=== PATIENT | male | born 1965 | race Caucasian/White ===

== ENCOUNTER 2019-07-06 18:46 | Emergency (ER) | payer BC, OTHER ==
--- NOTE | 2019-07-06 19:50 | ED Physician Documentation ---
History of Present Illness - Stated complaint Stated Complaint: FEVER/CHAVIRA - Chief complaint Chief Complaint: General - History obtained from History obtained from: Patient (the patient is a very pleasant and healthy 53 Y/O m who p/w a 3 day history of flu like symptoms.The patient reports he was seen by his primary care provider 3 days ago and was told that he had some sort of flu is been taking Tylenol and ibuprofen, however tonight he presents with a headache that is not resolved over the last 2 days. He denies any severe neck pain or seizures or rashes he reports he did not receive a flu shot this year.He denies take any blood thinners or been on any on any anticoagulants.He denies any recent falls or trauma or injuries to the head.He describes his headache as frontal in nature and dull he denies any nasal discharge he does report a sore throat.The headache is not the worst headache of his life its not maximum in intensity and it is not sudden in onset.) Review of Systems Constitutional: reports: Fever, Chills, Myalgias Eyes: reports: Reviewed and negative Ears: reports: Reviewed and negative Nose: reports: Reviewed and negative Throat: reports: Sore throat Cardiac: reports: Reviewed and negative Respiratory: reports: Reviewed and negative GI: reports: Reviewed and negative : reports: Reviewed and negative Skin: reports: Reviewed and negative Musculoskeletal: reports: Reviewed and negative Neurologic: reports: Headache Psychiatric: reports: Reviewed and negative Endocrine: reports: Reviewed and negative Immunocompromised: reports: Reviewed and negative PD PAST MEDICAL HISTORY - Allergies Allergies/Adverse Reactions: Allergies Allergy/AdvReac Type Severity Reaction Status Date / Time No Known Drug Allergies Allergy Verified 07/06/19 18:57 PD ED PE NORMAL - Vitals Vital signs reviewed: Yes - General General: Alert and oriented X 3, No acute distress, Well developed/nourished - HEENT HEENT: Atraumatic, PERRL, EOMI, Ears normal, Moist mucous membranes, Dentition benign, Other (Oropharynx is erythematous, uvula is midline there is no exudates) - Neck Neck: Supple, no meningeal sign, No bony TTP - Cardiac Cardiac: RRR, No murmur, Strong equal pulses - Respiratory Respiratory: No respiratory distress, Clear bilaterally - Abdomen Abdomen: Normal bowel sounds, Soft, Non tender, Non distended, No organomegaly - Back Back: No CVA TTP, No spinal TTP - Derm Derm: Normal color, Warm and dry, No rash - Extremities Extremities: No deformity, No edema - Neuro Neuro: Alert and oriented X 3, project management intern 2-12 intact, No motor deficit, No sensory deficit, Normal speech - Psych Psych: Normal mood, Normal affect Results - Vitals Vitals: Vital Signs - 24 hr 07/06/19 07/06/19 18:52 21:19 Temperature 37 C Heart Rate 69 66 Respiratory 17 16 Rate Blood Pressure 127/76 133/86 H O2 Saturation 100 97 Oxygen O2 Source Room air - Labs Labs: Laboratory Tests 07/06/19 07/06/19 07/06/19 20:04 20:30 20:30 WBC 11.0 H RBC 4.99 Hgb 15.6 Hct 43.5 MCV 87.2 MCH 31.3 H MCHC 35.9 RDW 12.4 Plt Count 40 L MPV 10.8 Neut # (Auto) 8.5 H Lymph # (Auto) 1.2 L [place] # (Auto) 1.2 H Eos # (Auto) 0.1 Baso # (Auto) 0.1 Absolute Nucleated RBC 0.00 Nucleated RBC % 0.0 Sodium 125 L Potassium 3.6 Chloride 88 L Carbon Dioxide 26 Anion Gap 11.0 BUN 19 Creatinine 0.9 Estimated GFR (MDRD) 89 Glucose 120 H Calcium 8.8 Total Creatine Kinase 48 Influenza A (Rapid) Negative Influenza B (Rapid) Negative PD MEDICAL DECISION MAKING - ED course Complexity details: d/w patient (restults d/w patient and family. explained finding of hyponatremia, patient reports h/a resolved at this time. No previous labs to compare sodium levels. patient denies resp sx or taking any daily medications. patient has a scheduled appointment tomorrow with with pcp dr rankin. ), d/w family - Consults Consults: Discussed case with (hospitalist avionics technician. will dc home with follow up tomorrow w pcp.) Departure - Departure Clinical Impression: Hyponatremia Headache Qualifiers: Headache type: other headache syndrome Qualified Code(s): G44.89 - Other headache syndrome Condition: Good Instructions: ED Cephalgia Unspecified, Hyponatremia Dc Follow-Up: Amish Pretty MD [Primary Care Provider] - Tomorrow
[2019-07-06] MEDS ORDERED: PROCHLORPERAZINE 10 MG/2 ML VIAL IVP STA (19:59)
[2019-07-06] MEDS ORDERED: SODIUM CHLORIDE 0.9% 1,000 ML IV ONE (19:59)
[2019-07-06] MEDS ORDERED: diphenhydrAMINE INJ 50 MG/ML VIAL IVP STA (19:59)
--- NOTE | 2019-07-06 20:31 | CT Report ---
Reason: severe headache Procedure Date: 07/06/2019 Accession Number: [id number] / [id number] Procedure: CT - HEAD WO CPT Code: Final Report FULL RESULT: EXAM: CT HEAD WITHOUT CONTRAST. EXAM DATE: 07/06/2019 08:19 PM. CLINICAL HISTORY: Severe headache. COMPARISON: None. TECHNIQUE: Multiaxial CT images were obtained from the foramen magnum to the vertex. Reformats: Sagittal and coronal. IV contrast: None. In accordance with CT protocol optimization, one or more of the following dose reduction techniques were utilized for this exam: automated exposure control, adjustment of mA and/or KV based on patient size, or use of iterative reconstructive technique. FINDINGS: Parenchyma: No intraparenchymal hemorrhage. No evidence of mass, midline shift, or CT findings of infarction. [place]-white differentiation is distinct. Extraaxial Spaces: Normal for age. No subdural or epidural collections identified. Ventricles: Normal in size and position. Sinuses and Orbits: Imaged paranasal sinuses, orbits, and mastoids show no significant abnormality. Bones: No evidence of fracture or calvarial defect. Other: None. IMPRESSION: No acute intracranial abnormality. RADIA
[2019-07-06 20:40] LABS: BASOPHILS # (AUTO) 0.1 10^3/uL (0.0-0.1); BASOPHILS % (AUTO) 0.5 %; EOSINOPHILS # (AUTO) 0.1 10^3/uL (0.0-0.7); EOSINOPHILS % (AUTO) 0.5 %; HGB - HEMOGLOBIN 15.6 g/dL (14.0-18.0); LYMPHOCYTES # (AUTO) 1.2 10^3/uL (1.5-3.5); LYMPHOCYTES % (AUTO) 10.4 %; MEAN CORPUSCULAR HEMOGLOBIN 31.3 pg (27.0-31.0); MEAN CORPUSCULAR HGB CONC 35.9 g/dL (32.0-36.0); MEAN CORPUSCULAR VOLUME 87.2 fL (80.0-94.0); MEAN PLATELET VOLUME 10.8 fL (7.4-11.4); MONOCYTES # (AUTO) 1.2 10^3/uL (0.0-1.0); MONOCYTES % (AUTO) 10.8 %; NEUTROPHILS # (AUTO) 8.5 10^3/uL (1.5-6.6); NEUTROPHILS % (AUTO) 76.8 %; PLT - PLATELET COUNT 40 10^3/uL (130-450); RED BLOOD COUNT 4.99 10^6/uL (4.70-6.10); RED CELL DISTRIBUTION WIDTH 12.4 % (12.0-15.0)
[2019-07-06 20:49] LABS: CALCIUM 8.8 mg/dL (8.5-10.3); CREATININE 0.9 mg/dL (0.6-1.2)
[2019-07-06 22:04] VITALS: BP 130/85
== END 2019-07-06 22:50 | disposition home or self-care (01) ==
LOC: ED 18:46
DX: G44.89 Other headache syndrome (principal); E87.1 Hypo-osmolality and hyponatremia
CPT/HCPCS: 70450; 80048; 82550; 85025; 87275; 87276; 96361; 96374; 99284; J1200

== ENCOUNTER 2019-07-08 13:45 | Observation (INO) | payer OTHER ==
[2019-07-08] MEDS ORDERED: KETOROLAC 30 MG/ML VIAL IVP STA (14:31)
[2019-07-08] MEDS ORDERED: SODIUM CHLORIDE 0.9% 1,000 ML IV ONE (14:32)
--- NOTE | 2019-07-08 14:33 | ED Physician Documentation ---
History of Present Illness - Stated complaint Stated Complaint: FEVER/CHAVIRA - Chief complaint Chief Complaint: Fever - History obtained from History obtained from: Patient (This is a very healthy 53-year-old, no medical history. He is a runner. He has been sick for 8 days now with fever, worsening headaches. He has had mild nausea. No neck stiffness. No recent travel. No rashes. No abdominal pain or diarrhea. No sick contacts. No weight loss.) Review of Systems Ten Systems: 10 systems reviewed and negative Constitutional: reports: Fever, Chills, Myalgias, Fatigue Nose: denies: Rhinorrhea / runny nose, Congestion, Sinus pressure / pain Throat: denies: Sore throat Cardiac: denies: Chest pain / pressure, Palpitations Respiratory: denies: Dyspnea, Cough GI: denies: Abdominal Pain PD PAST MEDICAL HISTORY - Past Medical History Cardiovascular: None Respiratory: None Neuro: None Endocrine/Autoimmune: None GI: None : None HEENT: None Psych: None Musculoskeletal: None Derm: None - Past Surgical History Past Surgical History: Yes - Allergies Allergies/Adverse Reactions: Allergies Allergy/AdvReac Type Severity Reaction Status Date / Time No Known Drug Allergies Allergy Verified 07/08/19 14:02 - Social History Does the pt smoke?: No Smoking Status: Never smoker - Immunizations Immunizations are current?: No - POLST Patient has POLST: No PD ED PE NORMAL - Vitals Vital signs reviewed: Yes - General General: Alert and oriented X 3, No acute distress - HEENT HEENT: PERRL, EOMI, Ears normal, Moist mucous membranes, Pharynx benign - Neck Neck: Supple, no meningeal sign, No bony TTP - Cardiac Cardiac: RRR, No murmur - Respiratory Respiratory: No respiratory distress, Clear bilaterally - Abdomen Abdomen: Non tender - Back Back: No CVA TTP, No spinal TTP - Derm Derm: Normal color, Warm and dry - Extremities Extremities: No edema, No calf tenderness / cord - Neuro Neuro: Alert and oriented X 3, No motor deficit, No sensory deficit, Normal speech - Psych Psych: Normal mood, Normal affect Results - Vitals Vitals: Vital Signs - 24 hr 07/08/19 07/08/19 13:58 15:49 Temperature 37.6 C H Heart Rate 66 58 L Respiratory 16 18 Rate Blood Pressure 137/75 H 128/72 O2 Saturation 99 96 Oxygen O2 Source Room air - Labs Labs: Microbiology 07/08/19 14:45 CSF Culture - Preliminary Cerebral Spinal Fluid Laboratory Tests 07/08/19 07/08/19 07/08/19 14:45 15:27 15:27 WBC 9.0 RBC 4.34 L Hgb 13.6 L Hct 38.9 L MCV 89.6 MCH 31.3 H MCHC 35.0 RDW 13.0 Plt Count 148 MPV 9.3 Neut # (Auto) 6.3 Lymph # (Auto) 1.8 [place] # (Auto) 0.7 Eos # (Auto) 0.0 Baso # (Auto) 0.1 Absolute Nucleated RBC 0.00 Nucleated RBC % 0.0 ESR Sodium 135 Potassium 3.2 L Chloride 98 L Carbon Dioxide 26 Anion Gap 11.0 BUN 22 H Creatinine 0.9 Estimated GFR (MDRD) 89 Glucose 117 H Lactic Acid Calcium 8.3 L Total Bilirubin 2.1 H AST 81 H ALT 95 H Alkaline Phosphatase 92 C-Reactive Protein 12.5 H Total Protein 5.9 L Albumin 3.0 L Globulin 2.9 Albumin/Globulin Ratio 1.0 Lipase 70 H CSF Color COLORLESS CSF Clarity CLEAR Xanthrochromic ABSENT CSF WBC 72 H* CSF RBC 11 H CSF Cell Count Tube # CSF TUBE# 3 CSF Neutrophils 56 H CSF Lymphocytes 19 L CSF Monocytes 25 CSF Glucose 48 CSF Total Protein 83 H 07/08/19 07/08/19 15:27 15:27 WBC RBC Hgb Hct MCV MCH MCHC RDW Plt Count MPV Neut # (Auto) Lymph # (Auto) [place] # (Auto) Eos # (Auto) Baso # (Auto) Absolute Nucleated RBC Nucleated RBC % ESR 29 H Sodium Potassium Chloride Carbon Dioxide Anion Gap BUN Creatinine Estimated GFR (MDRD) Glucose Lactic Acid 1.1 Calcium Total Bilirubin AST ALT Alkaline Phosphatase C-Reactive Protein Total Protein Albumin Globulin Albumin/Globulin Ratio Lipase CSF Color CSF Clarity Xanthrochromic CSF WBC CSF RBC CSF Cell Count Tube # CSF Neutrophils CSF Lymphocytes CSF Monocytes CSF Glucose CSF Total Protein Procedures - Lumbar Puncture Position: Sitting Location: L3-L4 Anesthesia: Local lidocaine CSF: Bloody but clearing Other: Sterile prep and drape, Patient tolerated well, No complications PD MEDICAL DECISION MAKING - ED course ED course: 53-year-old gentleman presents with fever of 8 days duration and headache. No neck stiffness. No neurologic findings. No other obvious infectious syndrome besides a viral syndrome other than meningitis is really possible. At the outset I discussed with him that we would do an LP, if that was negative we would have to pursue an FUO work-up. That said the LP was positive. Only 83 white cells but with a neutrophilic predominance and high protein so scores a 1 on the bacterial meningitis score, so although I suspect this is viral meningitis, bacterial etiology cannot be ruled out based on this alone. He also has a mild transaminitis which could be due to the underlying illness. Per up-to-date recommendations he was administered Rocephin 2 g, ampicillin 2 g, and vancomycin 1.5 g after blood cultures. Also IV Decadron. Spoke with Dr. Henderson for admission at 4:15 PM. Departure - Departure Disposition: [facility]/[place] Clinical Impression: Meningitis Condition: Stable
[2019-07-08 15:18] LABS: CSF - GLUCOSE 48 mg/dL (45-70)
[2019-07-08 15:37] LABS: BASOPHILS # (AUTO) 0.1 10^3/uL (0.0-0.1); BASOPHILS % (AUTO) 0.6 %; EOSINOPHILS % (AUTO) 0.4 %; HGB - HEMOGLOBIN 13.6 g/dL (14.0-18.0); LYMPHOCYTES # (AUTO) 1.8 10^3/uL (1.5-3.5); LYMPHOCYTES % (AUTO) 20.4 %; MEAN CORPUSCULAR HEMOGLOBIN 31.3 pg (27.0-31.0); MEAN CORPUSCULAR VOLUME 89.6 fL (80.0-94.0); MEAN PLATELET VOLUME 9.3 fL (7.4-11.4); MONOCYTES # (AUTO) 0.7 10^3/uL (0.0-1.0); MONOCYTES % (AUTO) 7.9 %; NEUTROPHILS # (AUTO) 6.3 10^3/uL (1.5-6.6); NEUTROPHILS % (AUTO) 69.7 %; PLT - PLATELET COUNT 148 10^3/uL (130-450); RED BLOOD COUNT 4.34 10^6/uL (4.70-6.10)
[2019-07-08 15:56] LABS: BILIRUBIN,TOTAL 2.1 mg/dL (0.2-1.0); CALCIUM 8.3 mg/dL (8.5-10.3); CREATININE 0.9 mg/dL (0.6-1.2); CRP - C-REACTIVE PROTEIN 12.5 mg/dL (0-1.0); TOTAL PROTEIN 5.9 g/dL (6.7-8.2)
[2019-07-08 16:00] LABS: CLARITY,CSF CLEAR (CLEAR); COLOR,CSF COLORLESS (COLORLESS); CSF TUBE # CSF TUBE# 3; CSF XANTHOCHROMIA ABSENT (ABSENT); LYMPHOCYTES,CSF 19 % (40-80); MONOCYTES,CSF 25 % (15-45); NEUTROPHILS,CSF 56 % (0-6); RED BLOOD CELL,CSF 11 /mm^3 (0-1)
[2019-07-08 16:02] LABS: WHITE BLOOD CELL,CSF 72 /mm^3 (0-5)
[2019-07-08] MEDS ORDERED: DEXAMETHASONE 10 MG/ML VIAL IVP STA (16:07)
[2019-07-08] MEDS ORDERED: cefTRIAXone 2 GM in SODIUM CHLORIDE 0.9% MINIBAG 100 ML IV STA (16:07)
[2019-07-08] MEDS ORDERED: VANCOMYCIN INJ 1.5 GM in SODIUM CHLORIDE 0.9% 500 ML IV STA (16:07)
[2019-07-08] MEDS ORDERED: AMPICILLIN 2 GM in SODIUM CHLORIDE 0.9% MINIBAG 100 ML IV STA (16:07)
[2019-07-08] MEDS ORDERED: oxyCODONE 5 MG TABLET PO PRN (16:38)
[2019-07-08] MEDS ORDERED: ONDANSETRON 4 MG/2 ML VIAL IVP PRN (16:38)
[2019-07-08] MEDS ORDERED: ACETAMINOPHEN 325 MG TABLET PO PRN (16:38)
--- NOTE | 2019-07-08 16:46 | XRAY Report ---
Reason: fever, chill, cough Procedure Date: 07/08/2019 Accession Number: [id number] / [id number] Procedure: XR - Chest 1 View X-Ray CPT Code: 68576 Final Report FULL RESULT: EXAM: CHEST RADIOGRAPHY EXAM DATE: 07/08/2019 04:38 PM. CLINICAL HISTORY: Fever, chill, cough. COMPARISON: None. TECHNIQUE: 1 view. FINDINGS: Lungs/Pleura: No focal opacities evident. No pleural effusion. No pneumothorax. Mediastinum: Within exam limitations, the cardiomediastinal contour is normal. Other: None. IMPRESSION: Negative chest. RADIA
[2019-07-08] MEDS ORDERED: VANCOMYCIN PER PHARMACY 1 GM in SODIUM CHLORIDE 0.9% 250 ML IV SCH (17:00)
[2019-07-08] MEDS ORDERED: AMPICILLIN 2 GM in SODIUM CHLORIDE 0.9% MINIBAG 100 ML IV SCH (17:00)
--- NOTE | 2019-07-08 17:19 | HISTORY & PHYSICAL EXAMINATION ---
Chief Complaint - Chief Complaint Chief Complaint: headache and fever History of Present Illness - Admitted From Admitted From:: ER - History Obtained From History obtained from: pt - History of Present Illness HPI Comment/Other: Mr. Lange is a healthy 53-year-old male without significant medical history, who present ER complaint of fever and headache. he report he had headache about 8 days, and more severe headache since this Thursday. he described his headache locate at the anterior with pressure on his face. he report he had fever at 102 degree at home with muscle ache, loss of appetite, and fatigue. he report he has no medical history and He is a runner. He denies neck stiffness, focal neurological deficits, chest pain, shortness of breath. He denies recent travel also. He report nausea and vomiting but without abdominal pain or diarrhea. he denies sick contacts or recently weight loss. CSF on LP reveals significant elevated WBC, elevated total protein and normal glucose level, which indicate pt has virus meningitis. culture of CSF preliminary reveals many WBC but no organisms seen. Route lab reveals slight elevated total bili and liver enzyme, potassium is 3.2. pt is admitted for headache and fever for further evaluation and treatment. History - Past Medical History Cardiovascular: reports: None Respiratory: reports: None Neuro: reports: None Endocrine/Autoimmune: reports: None GI: reports: None : reports: None HEENT: reports: None Psych: reports: None Musculoskeletal: reports: None Derm: reports: None MRSA Hx?: No - Family & Social History Family History: Mother: COPD/Emphysema, Father: Alive and Well Family History Comment/Other: pt report his mother from COPD and smoking, her father is 86 yrs old and as far he is health now. Social History Notes: pt denies cigarette smoking, alcohol and drug abuse. - POLST Patient has POLST: No Meds/Allgy - Home Medications Home Medications: Ambulatory Orders Medication Instructions Recorded Confirmed No Known Home Medications 07/08/19 07/08/19 - Allergies Allergies/Adverse Reactions: Allergies Allergy/AdvReac Type Severity Reaction Status Date / Time No Known Drug Allergies Allergy Verified 07/08/19 14:02 Review of Systems - Constitutional Constitutional: reports: Fatigue, Fever, Chills, Malaise, Poor appetite. denies: Weakness, Diaphoresis, Night sweats, Weight gain, Weight loss - Eyes Eyes: denies: Pain, Irritation, Amaurosis, Blurred vision, Spots in vision, Field loss, Vision loss, Dipolpia - Ears, Nose & Throat Ears, Nose & Throat: denies: Ear pain, Hearing loss, Hearing aids, Tinnitus, Nasal pain, Nasal discharge, Nosebleeds, Nasal obstruction, Nasal congestion, Postnasal drainage, Dentures, Sore throat, Hoarseness, Mouth lesions - Cardiovascular Cariovascular: denies: Irregular heart rate, Palpitations, Chest pain, Edema, Lightheadedness, Syncope, Exertional dyspnea, Decr. exercise tolerance - Respiratory Respiratory: denies: Cough, Sputum production, Wheezing, Snoring, Hemoptysis, Orthopnea, SOB at rest, SOB with exertion - Gastrointestinal Gastrointestinal: reports: Nausea, Vomiting. denies: Abdominal pain, Abdominal distention, Constipation, Diarrhea, Change in bowel habits, Rectal bleeding, Black stools, Bloody stools, Bile emesis, Ha blood emesis, Coffee grounds emesis, Reflux/heartburn - Genitourinary Genitourinary: denies: Dysuria, Frequency, Urgency, Hematuria, Incontinence, Flank pain, Nocturia, Urethral discharge - Musculoskeletal Musculoskeletal: reports: Muscle aches. denies: Muscle pain, Back pain, Stiffness, Limited range of motion, Muscle weakness, Gout, Joint pain - Integumentary Integumentary: denies: Rash, Pruritis, Lesions, Dryness, Lumps, Acne, Pigment changes, Nail changes - Neurological Neurological: reports: Headache. denies: General weakness, Focal weakness, Dizziness, Numbness, Memory problems, Pre-existing deficit, Abnormal gait, Seizures, Incoordination, Slurred speech - Psychiatric Psychiatric: denies: Depression, Anxiety, Suicidal, Delusions, Hallucinations, Homicidal - Endocrine Endocrine: denies: Polyuria, Polydypsia, Polyphagia, Intolerance to cold - Hematologic/Lymphatic Hematologic/Lymphatic: denies: Anemia, Bruising, Petechiae, Blood clots, Lymphadenopathy, Bleeding tendencies, Recurrent infections Exam - Vital Signs Vital Signs: Vital Signs x48h Temp Pulse Resp BP Pulse Ox 07/08/19 17:02 60 16 140/84 H 100 07/08/19 15:49 58 L 18 128/72 96 07/08/19 13:58 37.6 C H 66 16 137/75 H 99 - Physical Exam General Appearance: positive: No acute distress, Alert. negative: Lethargic Eyes Bilateral: positive: Normal inspection, PERRL, No lid inflammation ENT: positive: ENT inspection nml, Pharynx nml, No signs of dehydration. negative: Purulent nasal drainage Neck: positive: Nml inspection, Thyroid nml, No JVD, Trachea midline. negative: Thyromegaly, Lymphadenopathy (R), Lymphadenopathy (L), Stiff neck, Tracheal deviation Respiratory: positive: Chest non-tender, No respiratory distress, Breath sounds nml. negative: Wheezes, Rales, Rhonchi Cardiovascular: positive: Regular rate & rhythm, No murmur, No gallop. negative: Irregularly irregular, Extrasystoles, Tachycardia, Bradycardia, JVD present, Systolic murmur, Diastolic murmur Peripheral Pulses: positive: 2+ Abdomen: positive: Non-tender, No organomegaly, Nml bowel sounds, No distention. negative: Tenderness, Guarding, Rebound Back: positive: Nml inspection. negative: CVA tenderness (R), CVA tenderness (L) Skin: positive: Color nml, No rash, Warm, Dry. negative: Cyanosis, Diaphoresis, Pallor Extremities: positive: Non-tender, Full ROM, Nml appearance. negative: Calf tenderness, Justyn's sign/cords Neurologic/Psychiatric: positive: Oriented x3, Motor nml, Sensation nml, Mo od/affect nml. negative: Weakness, Sensory loss, Facial droop, Slurred/abnml speech, Depressed mood/affect Conclusion/Plan - Problem List (1) Meningitis Conclusion/Plan: pt had headache for 8 days, and present elevated temperature. but pt denies neck stiffness, and without involuntary bending of the knees and hip. CSF indicate possible virus meningitis, plus gram staining is negative. However until confirm from CSF culture, we can not exclude bacterial meningitis. ER start with IV of Decadron, Rocephin, Ampicillin, and Vancomycin, we will continue until CSF culture come back to confirm no bacterial growth. start acyclovir, check HSV-1/2 until confirm no HSV-1/2 then can stop neur check headache control with pain meds (2) Hypokalemia Conclusion/Plan: potassium is 3.2 today, indicate pt might have N/V. replace with potassium, lab monitor (3) Elevated liver enzymes Conclusion/Plan: pt has slight elevated bili and liver enzyme. possible virus infection. plan: acute hepatitis panel check US of abdomen lab monitor (4) Headache Conclusion/Plan: it is likely from pt's virus meningitis. pain control. - Lab Results Fish Bones: 07/08/19 15:27 07/08/19 15:27 Core Measures - Anticipated LOS I expect patient to be DC'd or transferred within 96 hours.: Yes - DVT/VTE - Prophylaxis VTE/DVT Device ordered at admit?: Yes VTE/DVT Prophylaxis med ordered at admit?: Yes
[2019-07-08] MEDS ORDERED: KETOROLAC 30 MG/ML VIAL IVP PRN (17:28)
[2019-07-08] MEDS: SODIUM CHLORIDE 0.9% 1,000 ML IV SCH (18:13)
[2019-07-08] MEDS ORDERED: POTASSIUM CHLORIDE 20 MEQ TABLET PO ONE (18:30)
--- NOTE | 2019-07-08 18:34 | PHARMACY PROGRESS NOTE ---
- Therapy Status Vancomycin regimen day #: 1 Therapy status: Awaiting steady state Basis for treatment: Empirical Treatment indication: MENINGITIS Trough goal: 15-20 Concurrent antibiotics: CEFTRIAXONE AND AMPICILLIN - MICHEAL Risk Risk level for Acute Kidney Injury: Moderate Acute Kidney Injury risk factors: Other nephrotoxic agents, Goal trough >15 - Monitoring and Recommendation Clinical response to treatment: I&O Previous 24 hours 07/06/19 07/07/19 07/08/19 23:59 23:59 23:59 Intake Total 1000 Balance 1000 Lab Results 07/08/19 07/08/19 15:27 15:27 ESR 29 H BUN 22 H Creatinine 0.9 Estimated GFR (MDRD) 89 Cultures 07/08/19 14:45 Cerebral Spinal Fluid CSF Culture - Preliminary Monitoring plan: Daily serum creatinine Next trough due (date/time): 07/10/2019 AT 0930
[2019-07-08 19:55] LABS: BILIRUBIN,URINE NEGATIVE (NEGATIVE); GLUCOSE, URINE (UA) NEGATIVE (NEGATIVE); KETONES,URINE (UA) 15 mg/dL (NEGATIVE); LEUKOCYTE ESTERASE, URINE NEGATIVE (NEGATIVE); MUDS CUTOFF CONCENTRATIONS CUTOFF CONC BELOW:; NITRITE,URINE NEGATIVE (NEGATIVE); OCCULT BLOOD,URINE NEGATIVE (NEGATIVE); PROTEIN,URINE TRACE mg/dL (NEGATIVE); UROBILINOGEN,URINE 4 E.U./dL (NORMAL)
[2019-07-08] MEDS: ACYCLOVIR IV SCH (19:55)
[2019-07-08] MEDS: SODIUM CHLORIDE 0.9% IV SCH (19:55)
--- NOTE | 2019-07-08 19:55 | Ultrasound Report ---
Reason: elevated liver enzyme Procedure Date: 07/08/2019 Accession Number: [id number] / [id number] Procedure: US - Abdomen Limited CPT Code: Final Report FULL RESULT: EXAM: ABDOMEN ULTRASOUND LIMITED, RUQ EXAM DATE: 07/08/2019 05:41 PM. CLINICAL HISTORY: Elevated liver enzyme. COMPARISON: None. TECHNIQUE: Real-time scanning was performed with static images obtained. FINDINGS: Liver: There appears to be normal variant focal fat adjacent to the falciform ligament. Liver length 17.9 cm. Main portal vein flow: Hepatopetal. Gallbladder: Within normal limits. Gallbladder appears partially contracted. Gallbladder wall measures 2 mm. No gallstones or sludge. No pericholecystic fluid. Negative sonographic Bocanegra sign. The common duct measures 4 mm. No intra-or extrahepatic bile duct dilatation. The right kidney measures 12.2 cm in length. At the lower pole right kidney, there is a mildly complex renal cyst with a thin septation and peripheral echogenic focus. This cyst measures 1.5 x 1.1 x 0.5 cm. Visualized portions of the pancreas appear unremarkable. Pancreatic duct measures 1.6 mm. IMPRESSION: 1. The gallbladder appears within normal limits. No bile duct dilatation is seen. 2. Mildly complex renal cyst at the lower pole right kidney, probably benign. Recommend a six-month follow-up ultrasound to confirm stability. RADIA
[2019-07-08 19:58] LABS: CLARITY,URINE CLEAR (CLEAR)
[2019-07-08 20:07] LABS: AMPHETAMINE SCREEN,URINE NEGATIVE (NEGATIVE); BACTERIA,URINE Rare /HPF (None Seen); BENZODIAZEPINES SCREEN, URINE NEGATIVE (NEGATIVE); COCAINE SCREEN URINE NEGATIVE (NEGATIVE); METHADONE SCREEN, URINE NEGATIVE (NEGATIVE); METHAMPHETAMINES SCREEN, URINE NEGATIVE (NEGATIVE); MUCUS,URINE Few Strands; OPIATE SCREEN, URINE NEGATIVE (NEGATIVE); OXYCODONE SCREEN, URINE NEGATIVE (NEGATIVE); PROPOXYPHENE SCREEN, URINE NEGATIVE (NEGATIVE); RBC,URINE None Seen /HPF (0-5); SQUAMOUS EPITHELIAL CELL,UR NONE SEEN (<= Few); TRICYCLIC ANTIDEPRESSANT,URINE NEGATIVE (NEGATIVE)
[2019-07-08] MEDS: AMPICILLIN 2 GM in SODIUM CHLORIDE 0.9% MINIBAG 100 ML IV SCH (20:20)
[2019-07-08] MEDS: FAMOTIDINE 20 MG TABLET PO SCH (21:13)
[2019-07-09] MEDS: AMPICILLIN 2 GM in SODIUM CHLORIDE 0.9% MINIBAG 100 ML IV SCH ×6 (00:49→21:12)
[2019-07-09] MEDS: VANCOMYCIN INJ 1 GM in SODIUM CHLORIDE 0.9% 250 ML IV SCH ×3 (01:58→18:14)
[2019-07-09] MEDS: SODIUM CHLORIDE FLUSH 0.9% 10 ML SYRINGE IVP SCH ×3 (01:58→17:03)
[2019-07-09] MEDS: SODIUM CHLORIDE 0.9% 1,000 ML IV SCH (04:09)
[2019-07-09] MEDS: SODIUM CHLORIDE 0.9% IV SCH ×3 (04:30→19:40)
[2019-07-09] MEDS: ACYCLOVIR IV SCH ×3 (04:30→19:40)
[2019-07-09 05:25] LABS: BASOPHILS % (AUTO) 0.3 %; HGB - HEMOGLOBIN 13.3 g/dL (14.0-18.0); LYMPHOCYTES # (AUTO) 1.9 10^3/uL (1.5-3.5); LYMPHOCYTES % (AUTO) 18.8 %; MEAN CORPUSCULAR HEMOGLOBIN 30.8 pg (27.0-31.0); MEAN CORPUSCULAR HGB CONC 34.4 g/dL (32.0-36.0); MEAN CORPUSCULAR VOLUME 89.6 fL (80.0-94.0); MEAN PLATELET VOLUME 9.5 fL (7.4-11.4); MONOCYTES # (AUTO) 0.3 10^3/uL (0.0-1.0); MONOCYTES % (AUTO) 3.3 %; NEUTROPHILS # (AUTO) 7.7 10^3/uL (1.5-6.6); NEUTROPHILS % (AUTO) 76.9 %; PLT - PLATELET COUNT 178 10^3/uL (130-450); RED BLOOD COUNT 4.32 10^6/uL (4.70-6.10); RED CELL DISTRIBUTION WIDTH 13.1 % (12.0-15.0)
[2019-07-09 06:14] LABS: ALBUMIN 2.6 g/dL (3.2-5.5); ALBUMIN/GLOBULIN RATIO 0.8 (1.0-2.2); BILIRUBIN,TOTAL 1.4 mg/dL (0.2-1.0); CALCIUM 8.2 mg/dL (8.5-10.3); CREATININE 0.8 mg/dL (0.6-1.2); CRP - C-REACTIVE PROTEIN 9.2 mg/dL (0-1.0); TOTAL PROTEIN 5.8 g/dL (6.7-8.2)
[2019-07-09] MEDS: FAMOTIDINE 20 MG TABLET PO SCH ×2 (09:50→21:12)
[2019-07-09] MEDS: ENOXAPARIN 40 MG/0.4 ML SYRINGE SUBQ SCH (09:50)
--- NOTE | 2019-07-09 11:26 | PROVIDER PROGRESS NOTE ---
Subjective - Prog Note Date Prog Note Date: 07/09/19 Prog Note Time: 11:24 - Subjective Pt reports feeling: Improved Subjective: Earl notes that he has overall improvement since being admitted, his agrees. I have informed he and his of the incidental finding of a renal cyst today. He denies chest pain, shortness of breath, nausea, vomiting, dizziness, blurred vision, hallucinations, or a new rash. He was told that if he remains free of fevers, he may go home after 48 hours of IV antibiotics, which will be 07/10 @ 1600. Current Medications - Current Medications Current Medications: Active Medications: Acetaminophen (Tylenol) 650 mg PO Q4HR PRN Enoxaparin Sodium (Lovenox) 40 mg SUBQ DAILY DAE Famotidine (Pepcid) 20 mg PO BID DAE Ceftriaxone Sodium 2 gm/ (Sodium Chloride) 100 mls @200 mls/hr IV BID DAE Ampicillin Sodium 2 gm/ Sodium (Chloride) 100 mls @ 100 mls/hr IV Q4HR DAE Acyclovir 750 mg/ Sodium (Chloride) 515 mls @ 500 mls/hr IV Q8H DAE Vancomycin HCl 1 gm/ Sodium (Chloride) 250 mls @ 167 mls/hr IV Q8H DAE Ketorolac Tromethamine (Toradol Inj (30mg) 30 mg IVP Q6HR PRN Ondansetron HCl (Zofran Inj) 4 mg IVP Q6HR PRN Oxycodone HCl (Roxicodone) 5 mg PO Q4HR PRN No Known Home Medications 07/08/19 Objective - Vital Signs/Intake & Output Reviewed Vital Signs: Yes Vital Signs: Vital Signs x48h Temp Pulse Resp BP Pulse Ox 07/09/19 08:19 37.1 C 63 16 131/83 H 98 07/09/19 05:00 37.1 C 64 16 125/80 95 Intake & Output: Intake & Output 07/06/19 07/07/19 07/08/19 07/09/19 23:59 23:59 23:59 23:59 Intake Total 2666.667 1989 Output Total 600 325 Balance 2066.667 1665 - Objective General Appearance: positive: No acute distress, Alert Eyes Bilateral: positive: PERRL, No lid inflammation ENT: positive: Pharynx nml, No signs of dehydration Neck: positive: No JVD, Trachea midline Respiratory: positive: Chest non-tender, No respiratory distress, Breath sounds nml Cardiovascular: positive: Regular rate & rhythm, No murmur, No gallop Peripheral Pulses: 2+ Radial (R), 2+ Radial (L) Abdomen: positive: Non-tender, Nml bowel sounds Back: positive: Nml inspection Skin: positive: Color nml, No rash, Warm, Dry Extremities: positive: Non-tender, Full ROM, Nml appearance, No pedal edema Neurologic/Psychiatric: positive: Oriented x3, CN's nml (2-12), Motor nml, Sensation nml, Mood/affect nml Reflexes: Bicep (R): 3+, Bicep (L): 3+ - Lab Results Fish Bones: 07/09/19 05:15 07/09/19 05:15 Other Labs: Lab Results x24hrs 07/09/19 07/09/19 07/08/19 Range/Units 05:15 05:15 19:45 WBC 10.0 (4.8-10.8) x10^3/uL RBC 4.32 L (4.70-6.10) 10^6/uL Hgb 13.3 L (14.0-18.0) g/dL Hct 38.7 L (42.0-52.0) % MCV 89.6 (80.0-94.0) fL MCH 30.8 (27.0-31.0) pg MCHC 34.4 (32.0-36.0) g/dL RDW 13.1 (12.0-15.0) % Plt Count 178 (130-450) 10^3/uL MPV 9.5 (7.4-11.4) fL Neut # (Auto) 7.7 H (1.5-6.6) 10^3/uL Lymph # (Auto) 1.9 (1.5-3.5) 10^3/uL Gregg # (Auto) 0.3 (0.0-1.0) 10^3/uL Eos # (Auto) 0.0 (0.0-0.7) 10^3/uL Baso # (Auto) 0.0 (0.0-0.1) 10^3/uL Absolute Nucleated RBC 0.00 x10^3/uL Nucleated RBC % 0.0 /100WBC ESR (0-20) mm/Hr Sodium 134 L (135-145) mmol/L Potassium 3.9 (3.5-5.0) mmol/L Chloride 103 (101-111) mmol/L Carbon Dioxide 22 (21-32) mmol/L Anion Gap 9.0 (6-13) BUN 23 H (6-20) mg/dL Creatinine 0.8 (0.6-1.2) mg/dL Estimated GFR (MDRD) 102 (>89) Glucose 179 H (70-100) mg/dL Lactic Acid (0.5-2.2) mmol/L Calcium 8.2 L (8.5-10.3) mg/dL Total Bilirubin 1.4 H (0.2-1.0) mg/dL AST 69 H (10-42) IU/L ALT 91 H (10-60) IU/L Alkaline Phosphatase 87 (42-121) IU/L C-Reactive Protein 9.2 H (0-1.0) mg/dL Total Protein 5.8 L (6.7-8.2) g/dL Albumin 2.6 L (3.2-5.5) g/dL Globulin 3.2 (2.1-4.2) g/dL Albumin/Globulin Ratio 0.8 L (1.0-2.2) Lipase (22-51) U/L Urine Color DARK YELLOW Urine Clarity CLEAR (CLEAR) Urine pH 6.0 (5.0-7.5) PH Ur Specific [place] 1.020 (1.002-1.030) Urine Protein TRACE (NEGATIVE) mg/dL Urine Glucose (UA) NEGATIVE (NEGATIVE) mg/dL Urine Ketones 15 H (NEGATIVE) mg/dL Urine Occult Blood NEGATIVE (NEGATIVE) Urine Nitrite NEGATIVE (NEGATIVE) Urine Bilirubin NEGATIVE (NEGATIVE) Urine Urobilinogen 4 H (NORMAL) E.U./dL Ur Leukocyte Esterase NEGATIVE (NEGATIVE) Urine RBC None Seen (0-5) /HPF Urine WBC 0-3 (0-3) /HPF Ur Squamous Epith Cells NONE SEEN (<= Few) Urine Bacteria Rare (None Seen) /HPF Urine Mucus Few Strands Urine Culture Comments NOT INDICATED CSF Color (COLORLESS) CSF Clarity (CLEAR) Xanthrochromic (ABSENT) CSF WBC (0-5) /mm^3 CSF RBC (0-1) /mm^3 CSF Cell Count Tube # CSF Neutrophils (0-6) % CSF Lymphocytes (40-80) % CSF Monocytes (15-45) % CSF Glucose (45-70) mg/dL CSF Total Protein (15-45) mg/dL Urine Opiates Screen NEGATIVE (NEGATIVE) Ur Oxycodone Screen NEGATIVE (NEGATIVE) Urine Methadone Screen NEGATIVE (NEGATIVE) Ur Propoxyphene Screen NEGATIVE (NEGATIVE) Ur Barbiturates Screen NEGATIVE (NEGATIVE) Ur Tricyclics Screen NEGATIVE (NEGATIVE) Ur Phencyclidine Scrn NEGATIVE (NEGATIVE) Ur Amphetamine Screen NEGATIVE (NEGATIVE) U Methamphetamines Scrn NEGATIVE (NEGATIVE) U Benzodiazepines Scrn NEGATIVE (NEGATIVE) Urine Cocaine Screen NEGATIVE (NEGATIVE) U Cannabinoids Screen NEGATIVE (NEGATIVE) Influenza A (Rapid) (Negative) Influenza B (Rapid) (Negative) 07/08/19 07/08/19 07/08/19 Range/Units 17:45 15:27 15:27 WBC (4.8-10.8) x10^3/uL RBC (4.70-6.10) 10^6/uL Hgb (14.0-18.0) g/dL Hct (42.0-52.0) % MCV (80.0-94.0) fL MCH (27.0-31.0) pg MCHC (32.0-36.0) g/dL RDW (12.0-15.0) % Plt Count (130-450) 10^3/uL MPV (7.4-11.4) fL Neut # (Auto) (1.5-6.6) 10^3/uL Lymph # (Auto) (1.5-3.5) 10^3/uL Gregg # (Auto) (0.0-1.0) 10^3/uL Eos # (Auto) (0.0-0.7) 10^3/uL Baso # (Auto) (0.0-0.1) 10^3/uL Absolute Nucleated RBC x10^3/uL Nucleated RBC % /100WBC ESR 29 H (0-20) mm/Hr Sodium (135-145) mmol/L Potassium (3.5-5.0) mmol/L Chloride (101-111) mmol/L Carbon Dioxide (21-32) mmol/L Anion Gap (6-13) BUN (6-20) mg/dL Creatinine (0.6-1.2) mg/dL Estimated GFR (MDRD) (>89) Glucose (70-100) mg/dL Lactic Acid 1.1 (0.5-2.2) mmol/L Calcium (8.5-10.3) mg/dL Total Bilirubin (0.2-1.0) mg/dL AST (10-42) IU/L ALT (10-60) IU/L Alkaline Phosphatase (42-121) IU/L C-Reactive Protein (0-1.0) mg/dL Total Protein (6.7-8.2) g/dL Albumin (3.2-5.5) g/dL Globulin (2.1-4.2) g/dL Albumin/Globulin Ratio (1.0-2.2) Lipase (22-51) U/L Urine Color Urine Clarity (CLEAR) Urine pH (5.0-7.5) PH Ur Specific [place] (1.002-1.030) Urine Protein (NEGATIVE) mg/dL Urine Glucose (UA) (NEGATIVE) mg/dL Urine Ketones (NEGATIVE) mg/dL Urine Occult Blood (NEGATIVE) Urine Nitrite (NEGATIVE) Urine Bilirubin (NEGATIVE) Urine Urobilinogen (NORMAL) E.U./dL Ur Leukocyte Esterase (NEGATIVE) Urine RBC (0-5) /HPF Urine WBC (0-3) /HPF Ur Squamous Epith Cells (<= Few) Urine Bacteria (None Seen) /HPF Urine Mucus Urine Culture Comments CSF Color (COLORLESS) CSF Clarity (CLEAR) Xanthrochromic (ABSENT) CSF WBC (0-5) /mm^3 CSF RBC (0-1) /mm^3 CSF Cell Count Tube # CSF Neutrophils (0-6) % CSF Lymphocytes (40-80) % CSF Monocytes (15-45) % CSF Glucose (45-70) mg/dL CSF Total Protein (15-45) mg/dL Urine Opiates Screen (NEGATIVE) Ur Oxycodone Screen (NEGATIVE) Urine Methadone Screen (NEGATIVE) Ur Propoxyphene Screen (NEGATIVE) Ur Barbiturates Screen (NEGATIVE) Ur Tricyclics Screen (NEGATIVE) Ur Phencyclidine Scrn (NEGATIVE) Ur Amphetamine Screen (NEGATIVE) U Methamphetamines Scrn (NEGATIVE) U Benzodiazepines Scrn (NEGATIVE) Urine Cocaine Screen (NEGATIVE) U Cannabinoids Screen (NEGATIVE) Influenza A (Rapid) Negative (Negative) Influenza B (Rapid) Negative (Negative) 07/08/19 07/08/19 07/08/19 Range/Units 15:27 15:27 14:45 WBC 9.0 (4.8-10.8) x10^3/uL RBC 4.34 L (4.70-6.10) 10^6/uL Hgb 13.6 L (14.0-18.0) g/dL Hct 38.9 L (42.0-52.0) % MCV 89.6 (80.0-94.0) fL MCH 31.3 H (27.0-31.0) pg MCHC 35.0 (32.0-36.0) g/dL RDW 13.0 (12.0-15.0) % Plt Count 148 (130-450) 10^3/uL MPV 9.3 (7.4-11.4) fL Neut # (Auto) 6.3 (1.5-6.6) 10^3/uL Lymph # (Auto) 1.8 (1.5-3.5) 10^3/uL Gregg # (Auto) 0.7 (0.0-1.0) 10^3/uL Eos # (Auto) 0.0 (0.0-0.7) 10^3/uL Baso # (Auto) 0.1 (0.0-0.1) 10^3/uL Absolute Nucleated RBC 0.00 x10^3/uL Nucleated RBC % 0.0 /100WBC ESR (0-20) mm/Hr Sodium 135 (135-145) mmol/L Potassium 3.2 L (3.5-5.0) mmol/L Chloride 98 L (101-111) mmol/L Carbon Dioxide 26 (21-32) mmol/L Anion Gap 11.0 (6-13) BUN 22 H (6-20) mg/dL Creatinine 0.9 (0.6-1.2) mg/dL Estimated GFR (MDRD) 89 (>89) Glucose 117 H (70-100) mg/dL Lactic Acid (0.5-2.2) mmol/L Calcium 8.3 L (8.5-10.3) mg/dL Total Bilirubin 2.1 H (0.2-1.0) mg/dL AST 81 H (10-42) IU/L ALT 95 H (10-60) IU/L Alkaline Phosphatase 92 (42-121) IU/L C-Reactive Protein 12.5 H (0-1.0) mg/dL Total Protein 5.9 L (6.7-8.2) g/dL Albumin 3.0 L (3.2-5.5) g/dL Globulin 2.9 (2.1-4.2) g/dL Albumin/Globulin Ratio 1.0 (1.0-2.2) Lipase 70 H (22-51) U/L Urine Color Urine Clarity (CLEAR) Urine pH (5.0-7.5) PH Ur Specific [place] (1.002-1.030) Urine Protein (NEGATIVE) mg/dL Urine Glucose (UA) (NEGATIVE) mg/dL Urine Ketones (NEGATIVE) mg/dL Urine Occult Blood (NEGATIVE) Urine Nitrite (NEGATIVE) Urine Bilirubin (NEGATIVE) Urine Urobilinogen (NORMAL) E.U./dL Ur Leukocyte Esterase (NEGATIVE) Urine RBC (0-5) /HPF Urine WBC (0-3) /HPF Ur Squamous Epith Cells (<= Few) Urine Bacteria (None Seen) /HPF Urine Mucus Urine Culture Comments CSF Color COLORLESS (COLORLESS) CSF Clarity CLEAR (CLEAR) Xanthrochromic ABSENT (ABSENT) CSF WBC 72 H* (0-5) /mm^3 CSF RBC 11 H (0-1) /mm^3 CSF Cell Count Tube # CSF TUBE# 3 CSF Neutrophils 56 H (0-6) % CSF Lymphocytes 19 L (40-80) % CSF Monocytes 25 (15-45) % CSF Glucose 48 (45-70) mg/dL CSF Total Protein 83 H (15-45) mg/dL Urine Opiates Screen (NEGATIVE) Ur Oxycodone Screen (NEGATIVE) Urine Methadone Screen (NEGATIVE) Ur Propoxyphene Screen (NEGATIVE) Ur Barbiturates Screen (NEGATIVE) Ur Tricyclics Screen (NEGATIVE) Ur Phencyclidine Scrn (NEGATIVE) Ur Amphetamine Screen (NEGATIVE) U Methamphetamines Scrn (NEGATIVE) U Benzodiazepines Scrn (NEGATIVE) Urine Cocaine Screen (NEGATIVE) U Cannabinoids Screen (NEGATIVE) Influenza A (Rapid) (Negative) Influenza B (Rapid) (Negative) ABX Reporting Has patient been on IV antibiotics over the past 48 hours?: Yes Assessment/Plan - Problem List (1) Meningitis Impression: -Patient works as a landscape nurseryman -Possible environmental exposure, walks through shrubs, trees, [place] frequently -Very healthy daily life, states he is a runner -On admission, patient reported a headache with fevers for 8 days -Temperature max recorded as 37.6 C in the ED, now resolved -Normal WBCs -Denies neck stiffness -LP obtained on admit, showing possibly viral versus bacterial meningitis -Culture is pending, no pathogen identified today -Continues on IV Rocephin, Ampicillin, Acyclovir, and Vancomycin -Blood work of HSV, hepatitis, CBCs, blood cultures -Continue IV treatment for a minimum of 48 hours, needs to be fever free for at least 24 hours -Continue droplet precautions until today at 1600 -Await labs Hypokalemia -Serum potassium was 3.2 upon admission, now normal at 3.9 -Suspect from poor PO intake -Routine labs, encourage meals Elevated liver enzymes -On admission, patient had an elevated AST of 81, now 69, elevated ALT of 95, now 91, & an elevated total bilirubin of 2.1, now 1.4 -Abdominal US shows no liver cirrhosis, no clogged common bile duct, incidental finding of a renal cyst -Hepatitis panel is negative, no recent travel, no known IV drug use, or HIV history -Likely due to illness -Patient admits to social drinking, less than 4-5 drinks weekly -Patient notes that he has had an elevated bilirubin since his early 20's -Denies jaundice or other complications -Checking serum GGT level for the AM -Routine labs Right renal cyst -Incidental finding on abdominal US -Measures 1.5 x 1.1 x 0.5 cm -I have provided this finding to the patient and his with follow up plans -Recommend follow up in 6 months, defer to primary Headache -Improved since admission -No vision changes -Continue to monitor
[2019-07-09 11:47] LABS: HEPATITIS A IGM NON-REACTIVE (NON-REACTIVE); HEPATITIS B SURFACE ANTIGEN NON-REACTIVE (NON-REACTIVE); HEPATITIS C ANTIBODY NON-REACTIVE (NON-REACTIVE)
[2019-07-09] MEDS: cefTRIAXone 2 GM in SODIUM CHLORIDE 0.9% MINIBAG 100 ML IV SCH (18:11)
[2019-07-10] MEDS: AMPICILLIN 2 GM in SODIUM CHLORIDE 0.9% MINIBAG 100 ML IV SCH ×4 (01:32→12:12)
[2019-07-10] MEDS: SODIUM CHLORIDE FLUSH 0.9% 10 ML SYRINGE IVP SCH ×2 (01:37→09:30)
[2019-07-10] MEDS: SODIUM CHLORIDE FLUSH 0.9% 10 ML SYRINGE IVP PRN ×6 (01:38→06:02)
[2019-07-10] MEDS: VANCOMYCIN INJ 1 GM in SODIUM CHLORIDE 0.9% 250 ML IV SCH ×2 (02:02→10:20)
[2019-07-10] MEDS: SODIUM CHLORIDE 0.9% IV SCH ×2 (03:40→12:08)
[2019-07-10] MEDS: ACYCLOVIR IV SCH ×2 (03:40→12:08)
[2019-07-10 05:13] LABS: BASOPHILS % (AUTO) 0.9 %; EOSINOPHILS % (AUTO) 1.1 %; HGB - HEMOGLOBIN 12.5 g/dL (14.0-18.0); MEAN CORPUSCULAR HEMOGLOBIN 30.1 pg (27.0-31.0); MEAN CORPUSCULAR HGB CONC 33.7 g/dL (32.0-36.0); MEAN CORPUSCULAR VOLUME 89.4 fL (80.0-94.0); MEAN PLATELET VOLUME 9.3 fL (7.4-11.4); MONOCYTES % (AUTO) 5.2 %; NEUTROPHILS % (AUTO) 47.9 %; PLT - PLATELET COUNT 271 10^3/uL (130-450); RED BLOOD COUNT 4.15 10^6/uL (4.70-6.10); RED CELL DISTRIBUTION WIDTH 13.5 % (12.0-15.0); WHITE BLOOD COUNT 7.4 x10^3/uL (4.8-10.8)
[2019-07-10 05:24] LABS: BAND NEUTROPHILS % (MANUAL) 0 %
[2019-07-10 05:28] LABS: ALBUMIN 2.2 g/dL (3.2-5.5); ALBUMIN/GLOBULIN RATIO 0.8 (1.0-2.2); CALCIUM 7.8 mg/dL (8.5-10.3); CREATININE 0.8 mg/dL (0.6-1.2); CRP - C-REACTIVE PROTEIN 4.3 mg/dL (0-1.0); TOTAL PROTEIN 4.8 g/dL (6.7-8.2)
[2019-07-10 05:44] LABS: ABNORMAL LYMPHS % (MANUAL) 3 %; DIFFERENTIAL COMMENT MANUAL DIFFERENTIAL; EOSINOPHILS # (MANUAL) 0.1 10^3/uL (0-0.7); LYMPHOCYTES # (MANUAL) 2.7 10^3/uL (1.5-3.5); LYMPHOCYTES % (MANUAL) 34 %; MONOCYTES # (MANUAL) 0.4 10^3/uL (0.0-1.0); PLATELET ESTIMATE, MANUAL NORMAL (130-450,000) (NORMAL); PLATELET MORPHOLOGY NORMAL APPEARANCE (NORMAL); RBC MORPHOLOGY (MULTIPLE) NORMAL APPEARANCE (NORMAL)
[2019-07-10 06:09] LABS: HB2 TOTAL 13.1 g/dL; HEMOGLOBIN A1C 0.46 g/dL; HEMOGLOBIN A1C % 5.4 % (4.6-6.2)
[2019-07-10] MEDS: cefTRIAXone 2 GM in SODIUM CHLORIDE 0.9% MINIBAG 100 ML IV SCH (09:24)
[2019-07-10] MEDS: ENOXAPARIN 40 MG/0.4 ML SYRINGE SUBQ SCH (09:30)
[2019-07-10] MEDS: FAMOTIDINE 20 MG TABLET PO SCH (09:30)
--- NOTE | 2019-07-10 11:02 | Discharge Plan ---
Discharge Plan Problem Reviewed?: Yes Disposition: Home, Self Care Condition: Good Prescriptions: Acyclovir [Zovirax] 400 mg PO TID #24 tablet Lactobacillus Acidophilus/Fos [Acidophilus Probiotic Tablet] 1 each PO BIDWM #36 tablet Diet: Regular Activity Restrictions: No Restrictions Shower Restrictions: No Driving Restrictions: No Instruction Topics: Saccharomyces boulardii Florastor oral dosage forms, Acyclovir tablets or capsules, Meningitis Viral Ch Health Concerns: Viral meningitis Headaches Elevated liver enzymes Right renal cyst Plan of Treatment: Continue oral anti-viral agent for the next 8 days (three times per day) Take the Probiotic for the next 28 days See your PCP within 1 week Avoid stressful situations, drink plenty of fluids Seek follow up with your incidental finding of the right renal cyst Care Goals: Prevent recurrence of this infection Treat symptoms Prevent hospital stays or ED visits See your PCP for regular check ups Assessment: You were admitted to the hospital for meningitis and treated with several IV antibiotics/antivirals. Your original headache symptoms improved, you were free of fevers, and your overall condition improved. You have had at least 48 hours of treatment, so you can be discharged home today. The cultures collected did not provide any pathogens, other testing such as hepatitis, herpes simplex and blood cultures also showed no positive findings. You were checked for diabetes, this was negative. Your thyroid level also was normal. The elevated liver function testing became nearly normal today, even your bilirubin is now normal at 1.0. If any of these cultures show a positive result, I will be calling you personally at home in the next few days. No Smoking: If you smoke, Please STOP! Call for help. Follow-up with: Amish Pretty MD [Primary Care Provider] -
--- NOTE | 2019-07-10 11:13 | DISCHARGE SUMMARY ---
Discharge Summary Admit Date: 07/08/19 Discharge Date: 07/10/19 Discharging Provider: JATINDER Henriquez Primary Care Provider: Amish Pretty Code Status: Attempt Resuscitation Condition at Discharge: Good Discharge Disposition: 01 Home, Self Care - DIAGNOSES Admission Diagnoses: Meningitis Hypokalemia Elevated liver enzymes Headache Discharge Diagnoses with Status of Each Condition: Meningitis-Present on admission, work up concluded a viral cause. Patient denied any history of genital herpes, STDs, HIV, or exposure to foreign objects, continued on Acyclovir to be taken TID for the next 8 days, stable, symptoms resolved, no fevers Hypokalemia-Resolved Elevated liver enzymes-Resolved Renal cyst, right-New incidental finding on this admission, teaching provided, will need follow up in the next ~6 months, patient is aware, no dysuria, back pain or hematuria Headache-Resolved - HPI History of Present Illness: Earl Lange is a healthy 53-year-old male without a significant medical history and is an avid runner and admits to only social drinking not exceeding more than 4-5 drinks per week. The patient presented to the ED via private car for a recheck as he first came in on 06/30/2019 with a primary complaint of fever and headaches, which has been ongoing for the past 8 days. The patient described the location of his headache is right on the top of my head, with pressure on his face. His highest reported fever while at home was 102 F taken orally. His associated symptoms included body/muscle aches, loss of appetite, and fatigue. He denied neck stiffness, focal neurological deficits, any known sick contacts, insect bites, recent travel, diarrhea, chest pain, or shortness of breath. The patient states that he had some nausea with vomiting, that continues today. A lumbar puncture was performed to obtain CSF, which showed an elevated WBC of 72, elevated total protein of 83 and normal glucose level, which may indicate a viral source. The CSF culture is now pending. Labs show a normal WBC count, Hgb 13.6, Hct 38.9, ESR 29, potassium 3.2, BUN 22, glucose 117, calcium 8.3, total bili 2.1, AST 81, ALT 95, CRP 12.5, total protein 5.9, albumin 3.0, lipase 70, urine drug screen was clean, urinalysis shows no acute infection, urine ketones of 15, urine urobilinogen 4. The patient was admitted for IV antibiotics/antivirals, symptom management, and to await final culture results. - HOSPITAL COURSE Hospital Course: The patient was admitted to the hospital for meningitis and treated with several IV antibiotics/antivirals. The patients presenting headache resolved, he remained afebrile for greater than 24 hours, and his overall condition improved. The patient received at least 48 hours of treatment, as the required minimum treatment for this illness. The cultures collected did not provide any pathogens, other testing such as hepatitis, herpes simplex and blood cultures al so showed no positive findings. A hemoglobin A1C was normal at 5.4%, a TSH was normal at 3.03. The elevated liver function testing became nearly normal today, even the serum bilirubin is now normal at 1.0. If any of these cultures show a positive result, I assured the patient I would be personally calling him at home with any updates. - ALLERGIES Allergies/Adverse Reactions: Allergies Allergy/AdvReac Type Severity Reaction Status Date / Time No Known Drug Allergies Allergy Verified 07/08/19 14:02 - MEDICATIONS Home Medications: Ambulatory Orders Medication Instructions Recorded Confirmed Acyclovir [Zovirax] 400 mg PO TID #24 tablet 07/10/19 Lactobacillus Acidophilus/Fos 1 each PO BIDWM #36 tablet 07/10/19 [Acidophilus Probiotic Tablet] - PHYSICAL EXAM AT DISCHARGE General Appearance: positive: No acute distress, Alert Eyes Bilateral: positive: Normal inspection, PERRL ENT: positive: ENT inspection nml, Pharynx nml, No signs of dehydration Neck: positive: Nml inspection, Thyroid nml, No JVD, Trachea midline Respiratory: positive: Chest non-tender, No respiratory distress, Breath sounds nml Cardiovascular: positive: Regular rate & rhythm, No gallop, Systolic murmur Peripheral Pulses: positive: 2+ Abdomen: positive: Non-tender, Nml bowel sounds, Other (rounded, soft) Back: positive: Nml inspection Skin: positive: Color nml, No rash, Warm, Dry, Other (mild bronze toned, no jaundice) Extremities: positive: Non-tender, Full ROM, Nml appearance, No pedal edema Neurologic/Psychiatric: positive: Oriented x3, CN's nml (2-12), Motor nml, Sensation nml, Mood/affect nml Reflexes: Bicep (R): 4+, Bicep (L): 4+, Ankle (R): 4+, Ankle (L): 4+ - LABS Result Diagrams: 07/10/19 04:50 07/10/19 04:50 - DIAGNOSTIC IMAGING Diagnostic Imaging Results: Final report reviewed Diagnostic Imaging Results Comments: EXAM: CHEST RADIOGRAPHY 07/08/2019 04:38 PM IMPRESSION: Negative chest. EXAM: ABDOMEN ULTRASOUND LIMITED, RUQ 07/08/2019 05:41 PM IMPRESSION: 1. The gallbladder appears within normal limits. No bile duct dilatation is seen. 2. Mildly complex renal cyst at the lower pole right kidney, probably benign. Recommend a six-month follow-up ultrasound to confirm stability. - FOLLOW UP Follow Up: See your PCP within 1 week Seek follow up with your incidental finding of the right renal cyst, recommend further imaging in ~ 6 months. - TIME SPENT Time Spent in Discharge (Minutes): 55
[2019-07-10] MEDS ORDERED: cefTRIAXone 2 GM in SODIUM CHLORIDE 0.9% MINIBAG 100 ML IV SCH (15:00)
[2019-07-10 15:10] VITALS: BP 144/76
[2019-07-12 09:23] LABS: SOURCE CEREBROSPINAL FLUID
[2019-07-12 12:16] LABS: HSV 1 IGG TYPE SPECIFIC AB <0.90 index; HSV 2 IGG TYPE SPECIFIC AB <0.90 index
== END 2019-07-10 15:22 | disposition home or self-care (01) ==
LOC: ED 13:45 → MS2 16:38 → UNDOADMOB 16:42 → UNDODISOB 07-10 15:22
PROVIDERS: ADMIT Nurse Practitioner Gerontology; ATTEND Nurse Practitioner
DX: A87.9 Viral meningitis, unspecified (principal); E87.6 Hypokalemia; R74.0 Nonspecific elevation of levels of transaminase and lactic acid dehydrogenase [LDH]
CPT/HCPCS: 36415; 62270; 71045; 76705; 80053; 80074; 81001; 82945; 82977; 83036; 83605; 83690; 84157; 85025; 85651; 86140; 86695; 86696; 87040; 87070; 87205; 87252; 87275; 87276; 87529; 89051; 96361; 96365; 96366; 96367; 96368; 96372; 96375; 99285; A9270; G0378; J0133; J1650; J3370; 80202; 80306; 84443; 87086

== ENCOUNTER 2021-10-11 09:49 | Day surgery (SDC) | payer OTHER ==
[2021-10-11] MEDS ORDERED: LACTATED RINGERS 1,000 ML IV ONE ×2 (09:56→11:42)
[2021-10-11] MEDS ORDERED: PROPOFOL 500 MG/50 ML 500 MG/50 ML VIAL ONE (10:46)
--- NOTE | 2021-10-11 10:46 | ANESTHESIA ---
Pre-Anesthesia VS, & Labs - Diagnosis screening - Procedure colonoscopy Vital Signs: Temp Pulse Resp BP Pulse Ox 36.6 C 50 L 12 137/84 H 100 10/11/21 09:56 10/11/21 09:56 10/11/21 09:56 10/11/21 09:56 10/11/21 09:56 Height: 5 ft 10 in Weight (kg): 73 kg Body Mass Index: 23.1 BMI Classification: Healthy weight - NPO >8 hours - Lab Results Lab results reviewed: Yes Home Medications and Allergies Allergies/Adverse Reactions: Allergies Allergy/AdvReac Type Severity Reaction Status Date / Time No Known Drug Allergies Allergy Verified 10/11/21 10:11 Anes History & Medical History - Anesthetic History Anesthesia Complications: reports: No previous complications Family history of Anesthesia Complications: Denies Family history of Malignant Hyperthermia: Denies - Medical History Cardiovascular: reports: None Pulmonary: reports: None Gastrointestinal: reports: None Urinary: reports: None Neuro: reports: None Musculoskeletal: reports: None Endocrine/Autoimmune: reports: None Blood Disorders: reports: None Skin: reports: None Smoking Status: Never smoker - Surgical History General: reports: Other Eyes Ears Nose Throat (EENT): reports: Tonsil/Adenoidectomy Exam General: Alert, Oriented x3, Cooperative, No acute distress Dental: WNL Mouth Openin Fingerbreadth Neck Mobility: Normal Mallampati classification: II Plan Anesthesia Type: General, IV Regional Consent for Procedure(s) Verified and Reviewed: Yes Code Status: Attempt Resuscitation ASA classification: 1-Healthy patient Is this case an emergency?: No
[2021-10-11] MEDS ORDERED: PROPOFOL 200 MG/20 ML VIAL IVP ONE (11:02)
[2021-10-11] MEDS ORDERED: GLYCOPYRROLATE 1 MG/5 ML VIAL ONE (11:21)
[2021-10-11 12:07] VITALS: BP 111/59
--- NOTE | 2021-10-11 13:31 | ANESTHESIA POST OP EVALUATION ---
Anesthesia Post Eval - Post Anesthesia Eval Vitals: Last Vital Signs Temp 36.4 C L 10/11/21 12:00 Pulse 56 L 10/11/21 12:00 Resp 15 10/11/21 12:00 BP 111/59 L 10/11/21 12:00 Pulse Ox 100 10/11/21 12:00 CV Function Including HR & BP: Stable Pain Control: Satisfactory Nausea & Vomiting: Negative Mental Status: Baseline Respiratory Status: Airway Patent Hydration Status: Satisfactory Anesthesia Complications: None
== END 2021-10-11 09:50 | disposition home or self-care (01) ==
LOC: SDS 09:49
PROVIDERS: ATTEND Surgery
DX: Z12.11 Encounter for screening for malignant neoplasm of colon (principal); K57.30 Diverticulosis of large intestine without perforation or abscess without bleeding; R01.1 Cardiac murmur, unspecified
CPT/HCPCS: 45378; J7120